=== PATIENT | male | born 1995 | race Caucasian/White ===

== ENCOUNTER 2021-12-23 08:59 | Outpatient (CLI) | payer BC, SELFPAY ==
[2021-12-23 14:18] LABS: Albumin* 4.7 g/dL (3.3-5.0); Chloride* 106 mmol/L (96-114); Sodium* 140 mmol/L (135-149)
[2021-12-23 14:19] LABS: Potassium* 4.4 mmol/L (3.6-5.1)
[2021-12-23 14:20] LABS: Cholesterol* 171 mg/dL (90-199); Creatinine* 0.7 mg/dL (0.5-1.5); Estimated Glomerular Filt Rate 130 ml/min
[2021-12-23 14:21] LABS: Alanine Aminotransferase* 31 U/L (4-50); Alkaline Phosphatase* 71 U/L (40-150); Aspartate Amino Transferase* 28 U/L (12-35); Bilirubin Total* 0.5 mg/dL (0.1-1.5); Blood Urea Nitrogen* 21 mg/dL (5-24); Carbon Dioxide* 22 mmol/L (20-32); Glucose* 109 mg/dL (60-115); Total Protein* 7.3 g/dL (6.0-8.3); Triglycerides* 79 mg/dL (40-149)
[2021-12-23 14:22] LABS: Calcium* 9.9 mg/dL (8.4-10.6); HDL Cholesterol* 36 mg/dL (>=40); LDL Cholesterol Calculated 119 mg/dL (<100)
[2021-12-23 14:44] LABS: Vitamin D 25 Hydroxy* 62 ng/mL (30-80)
[2021-12-23 14:51] LABS: TSH With Reflex to FT4* 0.539 uIU/mL (0.270-4.200)
[2021-12-23 15:10] LABS: Vitamin B12* 660 pg/mL (243-894)
== END 2021-12-23 09:00 | disposition home or self-care (01) ==
PROVIDERS: PCP Family Medicine; Visit Provider Family Medicine
DX: Z00.00 Encounter for general adult medical examination without abnormal findings (principal); R53.83 Other fatigue
CPT/HCPCS: 80053; 80061; 82306; 82607; 84443; 86038

== ENCOUNTER 2022-03-15 17:02 | Outpatient (CLI) | payer BC, SELFPAY ==
[2022-03-16 19:22] LABS: Thyroid Peroxidase (TPO) Ab 0.8 IU/mL (0.0-9.0)
[2022-03-17 12:21] LABS: Sex Hormone Binding Globulin 34 nmol/L (17-56); Testosterone, Adult Male 564 ng/dL (300-1080); Testosterone, Free Calculation 107 pg/mL (47-244); Testosterone, Percentage Free 1.9 % (1.6-2.9)
== END 2022-03-15 17:03 | disposition home or self-care (01) ==
PROVIDERS: PCP Family Medicine; Visit Provider Family Medicine
DX: R53.83 Other fatigue (principal)
CPT/HCPCS: 84270; 84402; 84403; 84443; 86376

== ENCOUNTER 2022-12-29 15:52 | Outpatient (CLI) | payer BC, SELFPAY ==
--- NOTE | 2022-12-29 16:00 | CRLHL7_ITS ---
For Patients: As a result of the Century Cures Act, medical imaging exams and procedure reports are released immediately into your electronic medical record. You may view this report before your referring provider. If you have questions, please contact your health care provider. CLINICAL HISTORY: Chronic sinusitis. TECHNIQUE: CT of the paranasal sinuses without contrast. Multiplanar reformats are included. COMPARISON: None. FINDINGS: Frontal sinuses/frontal sinus drainage pathways and anterior ethmoid air cells: The frontal sinuses and anterior ethmoid air cells are well aerated, and their outflow tracts are not obstructed. Posterior sinus group (posterior ethmoid air cells and sphenoid sinuses)/sphenoethmoidal recesses: The posterior ethmoid air cells and sphenoid sinuses are well aerated, and their outflow tracks are not obstructed. Maxillary sinuses and ostiomeatal complexes: A left maxillary sinus retention cyst. The maxillary sinuses are otherwise well aerated, and the maxillary sinus ostia and infundibular outflow tracts are not obstructed. Turbinates: A right middle turbinate latonya bullosa. Turbinates otherwise within normal limits. Nasal septum: Moderate leftward nasal septal deviation and septal spur. Nasal cavity: No obstructive lesion with the nasal cavity. Skullbase, maxilla, TMJ: Keros type 2 on the left. Keros type 2 on the right. No lytic or blastic osseous lesions. No periapical tooth lucencies. Mastoid air cells are clear. Orbital contents: Within normal limits. Imaged intracranial contents: Within normal limits. Imaged soft tissues structures: Within normal limits. IMPRESSION: 1. The paranasal sinuses are overall well aerated, and their outflow tracts are not obstructed. Scattered sites of minimal mucosal thickening and a small left maxillary sinus retention cyst. 2. Moderate leftward nasal septal deviation and septal spur. Please note that all CT scans at this facility use dose modulation, iterative reconstruction, and/or weight-based dosing when appropriate to reduce radiation dose to as low as reasonably achievable. Dictated by Felipe Mcdowell MD @ 12/30/2022 12:49:34 PM (Electronically Signed)
== END 2022-12-29 15:53 | disposition home or self-care (01) ==
LOC: CT 15:53
PROVIDERS: PCP Family Medicine; Visit Provider Otolaryngology
DX: J32.9 Chronic sinusitis, unspecified (principal); J34.2 Deviated nasal septum
CPT/HCPCS: 70486

== ENCOUNTER 2023-02-20 16:45 | Outpatient (RCR) | payer BC, SELFPAY | END 2023-05-03 15:39 | disposition home or self-care (01) | PROVIDERS: PCP Family Medicine; Visit Provider Family Medicine | DX: M25.511 Pain in right shoulder (principal); Z51.89 Encounter for other specified aftercare | CPT/HCPCS: 97110; 97161 ==

== ENCOUNTER 2023-02-27 09:05 | Outpatient (CLI) | payer BC, SELFPAY | END 2023-02-27 09:06 | disposition home or self-care (01) | LOC: FRMREF 09:05 | PROVIDERS: PCP Family Medicine; Visit Provider Family Medicine | DX: Z01.818 Encounter for other preprocedural examination (principal) | CPT/HCPCS: 80048 ==

== ENCOUNTER 2023-03-03 10:03 | Day surgery (SDC) | payer BC, SELFPAY ==
[2023-03-03] VITALS (12 sets, daily range): BP systolic 117–141; BP diastolic 83–98; PULSE 76–106; RESP 10–18; TEMP 36.2–36.4; O2SAT 97–100; BMI 24.8
[2023-03-03] MEDS: LACTATED RINGERS 1000 ML 1,000 ML 100 ML IV (10:10)
[2023-03-03] MEDS: SODIUM CHLORIDE 0.9 % (FLUSH) 10 ML SYRINGE IVF (10:46)
[2023-03-03] MEDS: COCAINE HCL 4 % 4 ML SOLUTION NOSTRIL-B (12:00)
[2023-03-03] MEDS: BUPIVACAINE 0.5%/EPINEPHRINE 0.9 MG (30.9 ML) INJECTION (12:03)
[2023-03-03] MEDS: AYR SALINE NASAL GEL 1 APPLIC NOSTRIL-B (12:10)
[2023-03-03] MEDS: MUPIROCIN 1 GM PACKET 1 APPLIC TOPICAL (12:10)
--- NOTE | 2023-03-03 12:21 | W.PM.ENTPROC ---
Procedure Note Date of procedure: 03/03/23 Procedure: Preoperative diagnosis deviated septum, nasal obstruction, inferior turbinate hypertrophy right-sided, right middle turbinate latonya bullosa, nasal headache Postoperative diagnosis same Procedure nasal septoplasty, endoscopic partial resection right middle turbinate latonya bullosa, submucous partial resection right inferior turbinate Under general trach tracheal anesthesia patient was prepped and draped usual fashion nose injected decongested. A right hemitransfixion incision was made. Left anterior and posterior tunnels were created. A vertical incision was made with the cartilage anterior to the bone junction and a right posterior tunnel created. The posterior deflected portions of septal bone including the impacted spur were resected. Two pieces were trimmed and returned to intraseptal space. The hemitransfixion was closed with 2 4-0 chromic sutures. A 0 degree endoscope was available for use during the remove this portion of the procedure. The right middle turbinate latonya was easily visualized and incised inferiorly with a 15 blade. The turbinate was then crushed with the Jose forceps. A stab incision was made in the anterior of the right inferior turbinate a tunnel created with a [place] dissector. The latonya bone was outfractured and a conservative anterior submucous resection performed. The Coblation Wand was used for hemostasis and to cauterize intramurally along the inferior 10%. Silastic stents were secured on either side the septum with a 3-0 nylon. Merocel packing was trimmed lengthwise and placed in the middle meatus on each side. The patient procedure well was taken recovery in satisfactory condition. Blood loss during procedure less than 10 mL. Surgeon: Bill Rosario MD
--- NOTE | 2023-03-03 13:57 | W.ANESCHARGE ---
Anesthesia Charges Start Date/Time Anesthesia Start Date: 03/03/23 Anesthesia Start Time: 11:42 Stop Date/Time Anesthesia Stop Date: 03/03/23 Anesthesia Stop Time: 12:26
== END 2023-03-03 14:08 | disposition home or self-care (01) ==
LOC: OR 10:04
PROVIDERS: PCP Family Medicine; Visit Provider Otolaryngology
PROC: (CPT 31231; principal; 2023-03-03 11:15)
DX: J34.2 Deviated nasal septum (principal); J34.3 Hypertrophy of nasal turbinates; R51.9 Headache, unspecified
CPT/HCPCS: 30520; 30140; 31240; 00160; A9270; J0330; J1100; J2405; J2704; J3010; J7120